=== PATIENT | male | born 1970 | race Caucasian/White ===

== ENCOUNTER 2020-09-03 14:30 | Emergency (ER) | payer OTHER ==
--- NOTE | 2020-09-03 16:10 | RAD REPORT ---
EXAM DESCRIPTION: [facility]a Pa And Lat (2 Views)09/03/2020 4:03 pm CLINICAL HISTORY: Cough COMPARISON: None FINDINGS: The lungs are mildly hazy. Heart normal size IMPRESSION: Lungs are mildly suspicious for mild pneumonia
--- NOTE | 2020-09-03 17:23 | EDPHYS ---
Physician Documentation [facility] Name: Olegario Hall Age: 49 yrs Sex: Male : 1970 Arrival Date: 09/03/2020 Time: 14:34 Bed 23 Private MD: ED Physician Eliot Naqvi HPI: 09/03 18:33 This 49 yrs old Male presents to ER via Ambulatory with complaints of kb Breathing Difficulty - Covid +. 18:33 The patient has not experienced similar symptoms in the past. The patient has been kb recently seen by a physician:. 18:33 The patient or guardian reports cough, that is intermittent, described as mild, with no kb sputum, difficulty breathing, flu symptoms, low-grade fever, myalgias, no appetite. Onset: The symptoms/episode began/occurred 5 day(s) ago. Severity of symptoms: At their worst the symptoms were moderate, in the emergency department the symptoms are unchanged. Modifying factors: The symptoms are alleviated by nothing, the symptoms are aggravated by nothing. Associated signs and symptoms: Pertinent positives: diarrhea, fever, Pertinent negatives: chest pain, ear ache, nausea, rhinorrhea, sore throat, vomiting. Patient reports he was diagnosed with Covid on August 29. 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 States everyone else seems to be getting better but his symptoms have not improved.. Historical: - Allergies: 14:43 No Known Allergies; hb - Home Meds: 14:43 Lisinopril Oral [Active]; hb - PMHx: 14:43 hypertension; hb - PSHx: 14:43 None; wrist - left; hb - Immunization history:: Adult Immunizations up to date. - Social history:: Smoking status: Reported history of juuling and/or vaping. ROS: 18:32 Cardiovascular: Negative for chest pain, palpitations, and edema. kb 18:32 Constitutional: Positive for body aches, chills, fatigue, fever, malaise. 18:32 Respiratory: Positive for cough, shortness of breath, Negative for dyspnea on exertion, hemoptysis, orthopnea, pleurisy, sputum production, wheezing. 18:32 Abdomen/GI: Positive for diarrhea, Negative for abdominal pain, nausea and vomiting. 18:32 Neuro: Positive for headache. 18:32 All other systems are negative. Exam: 18:33 Constitutional: This is a well developed, well nourished patient who is awake, alert, kb and in no acute distress. Head/Face: Normocephalic, atraumatic. ENT: Moist Mucous membranes Cardiovascular: Regular rate and rhythm with a normal S1 and S2. No gallops, murmurs, or rubs. No pulse deficits. Respiratory: Respirations even and unlabored. No increased work of breathing, no retractions or nasal flaring. Abdomen/GI: Soft, non-tender. No distention Skin: Warm, dry with normal turgor. Normal color. MS/ Extremity: Pulses equal, no cyanosis. Neurovascular intact. Full, normal range of motion. Neuro: Awake and alert, GCS 15, oriented to person, place, time, and situation. Moves all extremities. Normal gait. Psych: Awake, alert, with orientation to person, place and time. Behavior, mood, and affect are within normal limits. Vital Signs: 14:40 BP 146 / 67; Pulse 90; Resp 18; Temp 98.1; Pulse Ox 98% on R/A; Weight 120.2 kg; Height hb 6 ft. (182.88 cm); Pain 10/10; 16:55 BP 122 / 79; Pulse 87; Resp 20; Pulse Ox 95% ; kg 17:30 BP 116 / 63; Pulse 87; Resp 20; Pulse Ox 95% on R/A; kg 14:40 Body Mass Index 35.94 (120.20 kg, 182.88 cm) hb MDM: 16:42 Patient medically screened. kb 18:30 Data reviewed: vital signs, nurses notes. Data interpreted: Pulse oximetry: on room air kb is 97 %. Interpretation: normal. Counseling: I had a detailed discussion with the patient and/or guardian regarding: the historical points, exam findings, and any diagnostic results supporting the discharge/admit diagnosis, radiology results, the need for outpatient follow up, a family practitioner, to return to the emergency department if symptoms worsen or persist or if there are any questions or concerns that arise at home. ED course: o2 sat 95 to 97% on room air. No respiratory distress. Patient educated to obtain pulse oximeter to check oxygen and return for sats less than 92%. Verbal understanding received. Patient in agreement with plan of care. 09/03 15:48 Order name: Chest Pa And Lat (2 Views) XRAY; Complete Time: 16:42 kb Administered Medications: 17:30 Drug: Decadron (dexamethasone) 10 mg Route: IM; Site: right deltoid; kg 17:49 Follow up: Response: No adverse reaction kg 17:35 Drug: Zithromax (azithromycin) 500 mg Route: PO; kg 17:50 Follow up: Response: No adverse reaction kg Disposition: 09/04 09:13 Co-signature as Attending Physician, Eliot Naqvi MD I agree with the assessment and manuel plan of care. Disposition Summary: 09/03/20 17:22 Discharge Ordered Location: Home kb Condition: Stable kb Diagnosis - Viral pneumonia, unspecified kb - Coronavirus infection, unspecified kb Followup: kb - With: Emergency Department - When: As needed - Reason: Worsening of condition Followup: kb - With: Private Physician - When: 2 - 3 days - Reason: Recheck today's complaints, Continuance of care, Re-evaluation by your physician Discharge Instructions: - Discharge Summary Sheet kb - Viral Respiratory Infection, [id number] kb - COVID-19 kb Forms: - Medication Reconciliation Form kb - Thank You Letter kb - Antibiotic Education kb - Prescription Opioid Use kb Prescriptions: - Prednisone 20 mg Oral Tablet - take 1 tablet by ORAL route once daily for 5 days; 5 tablet; Refills: 0, kb Product Selection Permitted - Zithromax 500 mg Oral Tablet - take 1 tablet by ORAL route once daily for 5 days; 5 tablet; Refills: 0, kb Product Selection Permitted Signatures: Dispatcher [employer] EDAZ Katherin Solis, HAMMER RUNNER-C HAMMER RUNNER-Eliot Bridges MD MD cha Baxter, Heather, TINA RN Yudith eDlcid, TINA RN kg Corrections: (The following items were deleted from the chart) 09/03 14:44 14:43 PSHx: Eye - left; hb hb 18:32 18:30 ED course: o2 sat 95 to 97% on room air. No respiratory distress. Patient kb educated to obtain pulse oximeter to check oxygen and return for sats less than 92%. . kb 18:33 18:32 Constitutional: Negative for fever, chills, and weight loss, kb kb 18:33 18:32 Respiratory: Positive for cough, shortness of breath, Negative for dyspnea on kb exertion, hemoptysis, orthopnea, pleurisy, sputum production, wheezing, kb 18:33 18:32 All other systems are negative, kb kb
--- NOTE | 2020-09-03 17:23 | ER ---
Nurse's Notes [facility] Name: Olegario Hall Age: 49 yrs Sex: Male : 1970 Arrival Date: 09/03/2020 Time: 14:34 Bed 23 Private MD: Diagnosis: Viral pneumonia, unspecified;Coronavirus infection, unspecified Presentation: 09/03 14:40 Chief complaint: Cough, congestion, intermittent fever, diarrhea, nausea, body aches, hb and headache x 1 week, c/o worsening SOB x 2 days. COVID + 08/29. Coronavirus screen: Client presents with at least one sign or symptom that may indicate coronavirus-19. Standard/surgical mask placed on the client. Provider contacted for isolation considerations. Client reports previous positive COVID test result. Ebola Screen: No symptoms or risks identified at this time. Initial Sepsis Screen: Does the patient meet any 2 criteria? No. Patient's initial sepsis screen is negative. Does the patient have a suspected source of infection? No. Patient's initial sepsis screen is negative. Risk Assessment: Do you want to hurt yourself or someone else? Patient reports no desire to harm self or others. Onset of symptoms was August 26, 2020. 14:40 Method Of Arrival: Ambulatory hb 14:40 Acuity: BINA 3 hb Triage Assessment: 17:04 Respiratory: the patient has mild shortness of breath. kg 17:49 General: Behavior is calm, cooperative, appropriate for age, quiet. kg Historical: - Allergies: 14:43 No Known Allergies; hb - Home Meds: 14:43 Lisinopril Oral [Active]; hb - PMHx: 14:43 hypertension; hb - PSHx: 14:43 None; wrist - left; hb - Immunization history:: Adult Immunizations up to date. - Social history:: Smoking status: Reported history of juuling and/or vaping. Screenin:03 Abuse screen: Denies threats or abuse. Denies injuries from another. Nutritional kg screening: No deficits noted. Tuberculosis screening: No symptoms or risk factors identified. Fall Risk None identified. No fall in past 12 months (0 pts). No secondary diagnosis (0 pts). No IV (0 pts). Ambulatory Aid- None/Bed Rest/Nurse Assist (0 pts). Gait- Normal/Bed Rest/Wheelchair (0 pts) Mental Status- Oriented to own ability (0 pts). Total Andrew Fall Scale indicates No Risk (0-24 pts). Assessment: 16:57 General: Appears in no apparent distress. General: Appears in no apparent distress. kg Pain: Complains of pain in face Pain radiates to Generalized Pain currently is 10 out of 10 on a pain scale. at worst was 10 out of 10 on a pain scale. level that patient reports is acceptable is 5 out of 10 on a pain scale. Quality of pain is described as aching. Neuro: No deficits noted. Cardiovascular: Reports chest pain, Rhythm is regular. Respiratory: Airway is patent Trachea midline Respiratory effort is unlabored, weak, Respiratory pattern is regular, Breath sounds are diminished bilaterally. Onset: The symptoms/episode began/occurred gradually. GI: Reports diarrhea. : No deficits noted. EENT: No deficits noted. Derm: No deficits noted. Vital Signs: 14:40 BP 146 / 67; Pulse 90; Resp 18; Temp 98.1; Pulse Ox 98% on R/A; Weight 120.2 kg; Height hb 6 ft. (182.88 cm); Pain 10/10; 16:55 BP 122 / 79; Pulse 87; Resp 20; Pulse Ox 95% ; kg 17:30 BP 116 / 63; Pulse 87; Resp 20; Pulse Ox 95% on R/A; kg 14:40 Body Mass Index 35.94 (120.20 kg, 182.88 cm) hb ED Course: 14:34 Patient arrived in ED. ds1 14:43 Triage completed. hb 14:43 Arm band placed on. hb 16:03 Chest Pa And Lat (2 Views) XRAY In Process Unspecified. EDMS 16:42 Katherin Solis FNP-C is PHCP. kb 16:42 Eliot Naqvi MD is Attending Physician. kb 16:55 Yudith Pedersen, TINA is Primary Nurse. kg 17:03 Patient has correct armband on for positive identification. Placed in gown. Bed in low kg position. Call light in reach. Side rails up X2. 17:49 No provider procedures requiring assistance completed. Patient did not have IV access kg during this emergency room visit. Administered Medications: 17:30 Drug: Decadron (dexamethasone) 10 mg Route: IM; Site: right deltoid; kg 17:49 Follow up: Response: No adverse reaction kg 17:35 Drug: Zithromax (azithromycin) 500 mg Route: PO; kg 17:50 Follow up: Response: No adverse reaction kg Outcome: 17:22 Discharge ordered by MD. sanders 17:49 Discharged to home ambulatory. kg 17:49 Condition: good 17:49 Discharge instructions given to patient, Instructed on discharge instructions, follow up and referral plans. Demonstrated understanding of instructions, Prescriptions given X 2. 18:00 Patient left the ED. kg Signatures: Dispatcher [employer] EDMS Katherin Solis, REJI-C CARTOGRAPHY TEACHER-Irene Whitaker ds1 Veronica De Leon, RN RN Yudith Pedersen, TINA RN kg Corrections: (The following items were deleted from the chart) 14:44 14:43 PSHx: Eye - left; hb hb
[2020-09-03] MEDS ORDERED: dexAMETHasone 10 MG/ML VIAL ONE (17:51)
[2020-09-03] MEDS ORDERED: AZITHROMYCIN 250 MG TAB ONE (17:51)
[2020-09-03 18:09] VITALS: TEMP 98.1
[2020-09-03 18:10] VITALS: O2SAT 95
[2020-09-03 18:12] VITALS: BP 116/63
== END 2020-09-03 18:00 | disposition home or self-care (01) ==
LOC: ER 14:30
DX: U07.1 COVID-19 (principal); J12.9 Viral pneumonia, unspecified; I10 Essential (primary) hypertension
CPT/HCPCS: 71046; 96372; 99283; J1100